=== PATIENT | female | born 1945 | race Hispanic/Latino ===

== ENCOUNTER → 2019-10-30 | Day surgery (SDC) | payer OTHER ==
[2019-10-25 10:37] LABS: BASOPHILS # (AUTO) 0.1 (0.0-0.1); BASOPHILS % 0.9 % (0.0-1.0); EOSINOPHILS # (AUTO) 0.1 (0.0-0.4); EOSINOPHILS % 2.3 % (0.0-6.0); HEMATOCRIT 40.6 % (34.2-44.1); HEMOGLOBIN 13.7 g/dL (12.0-16.0); LYMPHOCYTES # (AUTO) 1.6 (1.0-3.2); LYMPHOCYTES % 29.3 % (18.0-39.1); MEAN CORPUSCULAR HEMOGLOBIN 31.1 pg (28-32); MEAN CORPUSCULAR HGB CONC 33.7 g/dL (31-35); MEAN CORPUSCULAR VOLUME 92.3 fL (81-99); MONOCYTES # (AUTO) 0.5 (0.2-0.8); MONOCYTES % 8.3 % (4.4-11.3); NEUTROPHILS # (AUTO) 3.3 (2.1-6.9); PLATELET COUNT 325 x10e3/uL (140-360); RED CELL DISTRIBUTION WIDTH 12.4 % (11.7-14.4)
[2019-10-25 11:13] LABS: ALANINE AMINOTRANSFERASE 15 IU/L (0-55); ALBUMIN 4.4 g/dL (3.5-5.0); ALBUMIN/GLOBULIN RATIO 1.6 (0.8-2.0); ALKALINE PHOSPHATASE 62 IU/L (40-150); ANION GAP 16.3 mmol/L (8-16); BLOOD UREA NITROGEN 13 mg/dL (7-26); BUN/CREATININE RATIO 16 (6-25); CALCIUM 9.1 mg/dL (8.4-10.2); CARBON DIOXIDE 23 mmol/L (22-29); CHLORIDE 106 mmol/L (98-107); EST GLOMERULAR FILTRATION RATE > 60 ML/MIN (60-); GLUCOSE 105 mg/dL (74-118); POTASSIUM 4.3 mmol/L (3.5-5.1); SODIUM 141 mmol/L (136-145)
[~2019-10-30] VITALS: Ht 157.5 cm; Wt 90.3 kg
[2019-10-30] VITALS (9 sets, daily range): BP systolic 101–121; BP diastolic 59–76
[~2019-10-30] MED LIST: ALPRAZOLAM 0.5 MG TAB ONE; AMITRIPTYLINE H25 MG PO; ASPIRIN EC81 MG PO; BIOTIN10 MG PO; COQ-10100 MG PO; DIPHENHYDRAMINE HCL 25 MG CAP ONE; FENTANYL CITRATE/PF 100MCG/2 ML INJ ONE; HEPARIN SOD (PORCINE) 1000 UNIT/ML 30ML ONE; HEPARIN SOD/SOD CHLORIDE 2,000 ML ONE; IOPAMIDOL 370 MG/ML 200 ML INFUS..BTL INJ ONE; LIDOCAINE HCL 2% LOCAL 20 ML VIAL ONE; LISINOPRIL5 MG PO; METFORMIN HCL500 MG PO; MIDAZOLAM HCL 2 MG/2 ML VIAL ONE; NITROGLYCERIN/D5W 200 MCG/ML 250 ML ONE; OMEPRAZOLE40 MG PO; PRAVACHOL40 MG PO; SODIUM CHLORIDE 0.9% 1000ML 1,000 ML ONE; VERAPAMIL HCL 2.5 MG/ML 2 ML VIAL ONE
--- NOTE | 2019-10-30 10:34 | Operative Report ---
DATE OF PROCEDURE: 10/30/2019 SURGEON: Marques Keys MD REASON FOR INDICATION: Coronary artery disease, angina, and abnormal stress test. PROCEDURES PERFORMED: 1. Ultrasound-guided access in the right radial artery with sheath placement. 2. Conscious sedation 35 minutes. 3. Left heart catheterization, selective coronary angiography. 4. Deployment of right wrist TR band. COMPLICATIONS: None. RECOMMENDATIONS: Medical therapy. DESCRIPTION OF PROCEDURE: Access obtained in the right radial artery using ultrasound guidance. A 6-[place] sheath was placed. Coronary angiography demonstrated mild coronary artery disease, 10% to 20% luminal irregularities in the right coronary and circumflex coronary arteries. Left anterior descending artery distally 50% to 70% stenosis, 2 mm vessel. No intervention deemed necessary. Right wrist TR band applied. LV end-diastolic pressure was 10. No gradient across the aortic valve on pullback. Marques Keys MD [facility] /[id number]
== END | disposition home or self-care (01) ==
LOC: CATH LAB 06:05
PROVIDERS: ATTEND Internal Medicine Interventional Cardiology
DX: I25.118 Atherosclerotic heart disease of native coronary artery with other forms of angina pectoris (principal); Z01.812 Encounter for preprocedural laboratory examination; Z11.59 Encounter for screening for other viral diseases; E11.9 Type 2 diabetes mellitus without complications; I10 Essential (primary) hypertension; Z83.3 Family history of diabetes mellitus; Z79.84 Long term (current) use of oral hypoglycemic drugs
CPT/HCPCS: 36415; 76937; 80053; 85025; 93454; 99152; C1769; C1887; C1894; J1644; J2001; J2250; J3010; J7030; Q9967; U0002

== ENCOUNTER 2020-09-05 12:57 | Observation (INO) | payer OTHER ==
[~2020-09-05] VITALS: Ht 157.5 cm; Wt 93.0 kg
[~2020-09-05 12:57] MED LIST changes: -ALPRAZOLAM 0.5 MG TAB ONE; -DIPHENHYDRAMINE HCL 25 MG CAP ONE; -FENTANYL CITRATE/PF 100MCG/2 ML INJ ONE; -HEPARIN SOD (PORCINE) 1000 UNIT/ML 30ML ONE; -HEPARIN SOD/SOD CHLORIDE 2,000 ML ONE; -IOPAMIDOL 370 MG/ML 200 ML INFUS..BTL INJ ONE; -LIDOCAINE HCL 2% LOCAL 20 ML VIAL ONE; -MIDAZOLAM HCL 2 MG/2 ML VIAL ONE; -NITROGLYCERIN/D5W 200 MCG/ML 250 ML ONE; -SODIUM CHLORIDE 0.9% 1000ML 1,000 ML ONE; -VERAPAMIL HCL 2.5 MG/ML 2 ML VIAL ONE
[2020-09-05] MEDS ORDERED: SODIUM CHLORIDE 0.9% 1000ML 1,000 ML IV STA (13:28)
[2020-09-05] MEDS ORDERED: NITROGLYCERIN 2% OINT 1 GM PKT TOP ONE (13:30)
[2020-09-05] MEDS ORDERED: METOPROLOL TARTRATE INJ 1 MG/ML VIAL IV ONE (13:30)
[2020-09-05] MEDS ORDERED: ASPIRIN 81 MG CHEW TAB PO ONE ×2 (13:30→14:00)
[2020-09-05] MEDS ORDERED: ONDANSETRON HCL INJ 2MG/ML 2ML 2 MG/ML VIAL IV PRN ×2 (13:30→14:00)
[2020-09-05] MEDS ORDERED: SODIUM CHLORIDE 0.9% 1000ML 1,000 ML ONE (13:59)
[2020-09-05] MEDS ORDERED: ONDANSETRON HCL INJ 2MG/ML 2ML 2 MG/ML VIAL ONE (13:59)
[2020-09-05] MEDS: FAMOTIDINE 20 MG TAB PO SCH (14:29)
[2020-09-05] MEDS ORDERED: FAMOTIDINE 20 MG/2 ML VIAL IV ONE (14:34)
[2020-09-05] MEDS ORDERED: ENOXAPARIN SODIUM INJ 100 MG/ML SYR SC STA (15:25)
[2020-09-05] MEDS ORDERED: ENOXAPARIN SODIUM INJ 100 MG/ML SYR SC ONE (15:33)
[2020-09-05] MEDS: SIMVASTATIN 20 MG TAB PO SCH (20:18)
[2020-09-05 20:29] LABS: CREATINE KINASE MB 1.3 ng/mL (0-5.0)
[2020-09-05 20:32] VITALS: BP 139/80
[2020-09-05 21:23] VITALS: BP 139/80
[2020-09-06] VITALS (8 sets, daily range): BP systolic 107–151; BP diastolic 53–79
[2020-09-06] MEDS ORDERED: HYDRALAZINE HCL 20 MG/ML VIAL IV PRN (01:15)
[2020-09-06] MEDS ORDERED: ONDANSETRON HCL INJ 2MG/ML 2ML 2 MG/ML VIAL IV PRN (01:15)
[2020-09-06] MEDS ORDERED: SIMETHICONE 80 MG CHEW PO PRN (01:15)
[2020-09-06] MEDS ORDERED: HYDROCODONE/APAP 5MG-325MG TAB PO PRN (01:15)
[2020-09-06] MEDS ORDERED: BENZONATATE 100 MG CAP PO PRN (01:15)
[2020-09-06] MEDS ORDERED: DEXTROSE 50% SYRINGE 50 ML IV PRN (01:15)
[2020-09-06] MEDS ORDERED: ALBUTEROL/IPRATROPIUM 3 ML NEB NEB PRN (01:15)
[2020-09-06] MEDS ORDERED: DOCUSATE SODIUM 100 MG CAP PO PRN (01:15)
[2020-09-06] MEDS ORDERED: MELATONIN 5 MG TABLET PO PRN (01:15)
[2020-09-06] MEDS ORDERED: ACETAMINOPHEN 325 MG TAB PO PRN (01:15)
[2020-09-06] MEDS ORDERED: POTASSIUM CHLORIDE 20 MEQ TAB CR PO PRN (01:15)
[2020-09-06] MEDS ORDERED: DIPHENHYDRAMINE HCL 25 MG CAP PO PRN (01:15)
[2020-09-06] MEDS ORDERED: LIDOCAINE 4% PATCH TP PRN (01:15)
[2020-09-06] MEDS: FAMOTIDINE 20 MG TAB PO SCH ×2 (02:00→20:54)
[2020-09-06 06:01] LABS: BASOPHILS % 0.6 % (0.0-1.0); EOSINOPHILS # (AUTO) 0.1 (0.0-0.4); EOSINOPHILS % 2.3 % (0.0-6.0); HEMATOCRIT 39.1 % (34.2-44.1); HEMOGLOBIN 12.3 g/dL (12.0-16.0); LYMPHOCYTES # (AUTO) 1.8 (1.0-3.2); LYMPHOCYTES % 38.9 % (18.0-39.1); MEAN CORPUSCULAR HEMOGLOBIN 30.4 pg (28-32); MEAN CORPUSCULAR HGB CONC 31.5 g/dL (31-35); MEAN CORPUSCULAR VOLUME 96.8 fL (81-99); MONOCYTES # (AUTO) 0.4 (0.2-0.8); MONOCYTES % 8.9 % (4.4-11.3); NEUTROPHILS # (AUTO) 2.3 (2.1-6.9); NEUTROPHILS % 49.1 % (38.7-80.0); PLATELET COUNT 289 x10e3/uL (140-360); RED BLOOD COUNT 4.04 x10e6/uL (3.6-5.1)
[2020-09-06 06:15] LABS: INR 0.92; PARTIAL THROMBOPLASTIN TIME 28.2 seconds (23.8-35.5); PROTHROMBIN TIME 12.9 seconds (11.9-14.5)
[2020-09-06 06:22] LABS: ALBUMIN 3.4 g/dL (3.5-5.0); ALBUMIN/GLOBULIN RATIO 1.3 (0.8-2.0); ANION GAP 11.2 mmol/L (8-16); CALCIUM 8.2 mg/dL (8.4-10.2); CREATININE, SERUM 0.75 mg/dL (0.57-1.11); POTASSIUM 4.2 mmol/L (3.5-5.1)
[2020-09-06 06:42] LABS: THYROID STIMULATING HORMONE 3.449 uIU/mL (0.350-4.940)
[2020-09-06 06:44] LABS: CREATINE KINASE MB 0.9 ng/mL (0-5.0)
[2020-09-06 07:11] LABS: CALCIUM 8.3 mg/dL (8.4-10.2); PHOSPHORUS 3.6 MG/DL (2.3-4.7)
[2020-09-06] MEDS: PANTOPRAZOLE SOD 40 MG TABEC PO SCH (08:27)
[2020-09-06] MEDS ORDERED: PANTOPRAZOLE SOD 40 MG TABEC PO SCH (09:00)
[2020-09-06] MEDS ORDERED: METFORMIN HCL 500 MG TAB PO SCH (09:00)
[2020-09-06] MEDS ORDERED: SODIUM CHLORIDE 0.9% 50ML 50 ML ONE (14:33)
[2020-09-06] MEDS ORDERED: IOPAMIDOL 370 MG/ML 200 ML INFUS..BTL INJ ONE (14:34)
[2020-09-06] MEDS ORDERED: ENOXAPARIN SOD INJ 40 MG/0.4 ML SYR SC SCH (17:00)
[2020-09-06] MEDS: APIXABAN 5 MG TABLET PO SCH (18:42)
[2020-09-06] MEDS: SIMVASTATIN 20 MG TAB PO SCH (20:54)
[2020-09-06] MEDS ORDERED: ASPIRIN 81 MG ENTERIC COATED PO SCH (21:00)
[2020-09-06] MEDS ORDERED: LISINOPRIL 2.5 MG TAB PO SCH (21:00)
[2020-09-07] VITALS: BP 124/69
[2020-09-07 04:00] VITALS: BP 118/64
[2020-09-07] MEDS: PANTOPRAZOLE SOD 40 MG TABEC PO SCH (07:30)
[2020-09-07 08:36] VITALS: BP 131/75
[2020-09-07] MEDS: APIXABAN 5 MG TABLET PO SCH ×2 (09:00→17:00)
[2020-09-07] MEDS: FAMOTIDINE 20 MG TAB PO SCH (09:00)
[2020-09-07 10:37] VITALS: BP 131/75
[2020-09-07 12:19] VITALS: BP 137/79
[2020-09-07] MEDS ORDERED: METOPROLOL TART25 MG PO (12:23)
[2020-09-07] MEDS ORDERED: ELIQUIS5 MG PO (12:24)
[2020-09-07 17:07] VITALS: BP 141/78
== END 2020-09-07 18:33 | disposition home or self-care (01) ==
LOC: FSED 13:30 → ERHOLD 13:56 → MED/SURG 18:53
PROVIDERS: ADMIT Internal Medicine; ATTEND Internal Medicine
DX: I48.0 Paroxysmal atrial fibrillation (principal); I25.10 Atherosclerotic heart disease of native coronary artery without angina pectoris; E11.9 Type 2 diabetes mellitus without complications; I10 Essential (primary) hypertension; Z79.01 Long term (current) use of anticoagulants; E66.01 Morbid (severe) obesity due to excess calories; Z68.37 Body mass index [BMI] 37.0-37.9, adult; I44.7 Left bundle-branch block, unspecified
CPT/HCPCS: 36415; 70450; 71045; 71260; 80053; 80061; 81003; 82310; 82550; 82553; 82948; 83036; 83735; 83880; 84100; 84443; 84484; 85025; 85379; 85610; 85730; 93005; 93306; 96372; 96374; 96375; 99284; G0378; J1650; J2405; J7030; Q9967

== ENCOUNTER → 2021-05-27 | Outpatient (CLI) | payer SELFPAY ==
[~2021-05-27] MED LIST changes: +ELIQUIS5 MG PO; +IOPAMIDOL 370 MG/ML 200 ML INFUS..BTL INJ ONE; +METOPROLOL TART25 MG PO; +SODIUM CHLORIDE 0.9% 100 ML ONE
[2021-05-27 13:13] LABS: CREATININE, SERUM 0.77 mg/dL (0.57-1.11)
== END ==
LOC: CT 12:31
PROVIDERS: ATTEND Internal Medicine Interventional Cardiology
DX: R07.9 Chest pain, unspecified (principal); I48.91 Unspecified atrial fibrillation; I25.10 Atherosclerotic heart disease of native coronary artery without angina pectoris; I28.8 Other diseases of pulmonary vessels
CPT/HCPCS: 36415; 71275; 82565; 84520; J7050; Q9967

== ENCOUNTER 2022-06-13 22:46 | Emergency (ER) | payer OTHER ==
[~2022-06-13] VITALS: Ht 154.9 cm; Wt 92.1 kg
[~2022-06-13 22:46] MED LIST changes: -IOPAMIDOL 370 MG/ML 200 ML INFUS..BTL INJ ONE; -SODIUM CHLORIDE 0.9% 100 ML ONE
[2022-06-13] MEDS ORDERED: HYDROCODONE/APAP 5MG-325MG TAB PO STA (23:18)
[2022-06-13] MEDS ORDERED: HYDROCODONE/APAP 5MG-325MG TAB ONE (23:47)
[2022-06-14] MEDS ORDERED: ULTRAM 50MG50 MG PO (01:18)
[2022-06-14 01:30] VITALS: BP 138/60
== END 2022-06-14 01:30 | disposition home or self-care (01) ==
LOC: FSED 22:48
DX: S03.41XA Sprain of jaw, right side, initial encounter (principal); I48.20 Chronic atrial fibrillation, unspecified; R94.31 Abnormal electrocardiogram [ECG] [EKG]
CPT/HCPCS: 80048; 82553; 84484; 85025; 93005; 99283